=== PATIENT | female | born 2000 | race Caucasian/White ===

== ENCOUNTER 2024-12-24 08:29 | Day surgery (SDC) | payer OTHER, SELFPAY ==
[2024-12-24] VITALS (15 sets, daily range): BP systolic 83–122; BP diastolic 53–88; PULSE 69–115; RESP 16–18; TEMP 36.2–36.9; O2SAT 94–100; BMI 23.9
--- NOTE | 2024-12-24 09:02 | W.PM.OPSUD ---
Surgery/Procedure H&P Update DATE OF PROCEDURE: December 24, 2024 DATE H&P PERFORMED: 12/24/24 H&P UPDATE INFORMATION: I have reviewed H&P completed within last 30 days, I have examined patient prior to procedure and No changes to prior documentation PREOP DIAGNOSIS: Internal derangement left knee PLANNED PROCEDURE: Operation Date: 12/24/24 10:10 Proposed Procedures p Knee Arthroscopy w/ Microfracture of the patella(Left) - Ranjan Rowland MD s Removal of foreign body(Left) - Ranjan Rowland MD s Platelet-Rich Plasma Injection(Left) - Ranjan Rowland MD
--- NOTE | 2024-12-24 09:22 | ANES.PREANE2 ---
Pre-Anesthetic Assessment Height/Weight: Height 1.6 m Weight 61.235 kg Temp Pulse Resp BP Pulse Ox O2 Del Method 98.4 F 114 H 18 122/88 97 Room Air 12/24/24 08:58 12/24/24 08:58 12/24/24 08:58 12/24/24 08:58 12/24/24 08:58 12/24/24 08:58 Preop Diagnosis: Internal derangement left knee Operation Date: 12/24/24 10:10 Proposed Procedures p Knee Arthroscopy w/ Microfracture of the patella(Left) - Ranjan Rowland MD s Removal of foreign body(Left) - Ranjan Rowland MD s Platelet-Rich Plasma Injection(Left) - Ranjan Rowland MD Familial anesthetic complications: None Was Beta Fatuma taken within 24 hours: N/A Was Clonidine taken within 24 hours: N/A Last intake: Intake Last Liquid Date 12/23/24 Last Liquid Time 21:00 Last Solid Date 12/23/24 Last Solid Time 21:00 Social No alcohol and No tobacco Exam alert, oriented x 3, clear to auscultation bilaterally and regular rate & rhythm Airway Mallampati: Class I Dentition: full Anesthetic Plan ASA status: 1 Anesthesia: General Risk of > 500 ml blood loss (7ml/kg in children): No Medications/Allergies Home Medications ?Medication ?Instructions ?Recorded ?Confirmed ?Last Taken ?Type amitriptyline 10 mg tablet 10 mg PO DAILY 12/20/24 12/24/24 12/23/24 History citalopram 20 mg tablet 20 mg PO DAILY 12/20/24 12/24/24 12/23/24 History norgestimate 0.25 mg-ethinyl 1 tab PO QDAY 12/20/24 12/24/24 12/24/24 History estradiol 0.035 mg tablet (Bosque-Linyah) Allergies Allergy/AdvReac Type Severity Reaction Status Date / Time No Known Allergies Allergy Verified 12/24/24 08:57 [facility] Anesthesia Social History Smoking and tobacco/nicotine status: never used tobacco/nicotine
[2024-12-24] MEDS: sodium chloride 0.9% 1,000 ML 30 ML IV (09:23)
[2024-12-24 09:38] LABS: OR HCG Qualitative Urine Negative (Negative)
[2024-12-24] MEDS: ceFAZolin 2,000 mg SDV 2000 MG IVP (10:15)
[2024-12-24] MEDS: BUPivacaine 0.5% INJ 30 mL INJECTION (11:15)
[2024-12-24] MEDS: fentaNYL 50 mcg/mL INJ 2mL IVP ×2 (11:40→11:50)
[2024-12-24] MEDS: HYDROmorphone 1 mg/mL INJ 1ml 0.5 MG IVP ×2 (11:55→12:00)
--- NOTE | 2024-12-24 11:58 | P.OP_ITS ---
Operative Report Date of procedure: December 24, 2024 Surgeon: Ranjan Rowland MD Procedure: Preoperative diagnosis: Internal derangement of the left knee with loose bodies Postoperative diagnosis: Full-thickness cartilage loss distal portion of posterior patella, lateral femoral condyle Outer edge, hypertrophic synovium, loose body lateral gutter Procedure: Diagnostic left knee arthroscopy removal loose bodies, microfracture technique of posterior patella and lateral femoral condyle, partial synovectomy Surgeon: Ranjan Rowland MD Anesthesia: General EBL: 20 cc Indications: Cadence is a 24-year-old white female who had a knee injury within the last month causing her left knee to buckle and have a dislocation of her patella. She has a history of recurrent but locations of her left knee. After this injury however she is unable to bear weight unable to ambulate, and had significant swelling. She is originally seen by her primary care and then by an orthopedic surgeon in [place] who diagnosed her with a full-thickness cartilage loss to a portion of her posterior patella. Loose bodies of the cartilage wear within the knee. No other gross abnormalities were noted at that time. However, due to the length of time it would be to have surgery by this physician they sought a second opinion from my office. After evaluation and felt there was necessary for arthroscopic evaluation of the knee. Removal of loose bodies. Evaluation of the full-thickness cartilage loss with possible microfracture technique versus fibrin clot placement. All risks, benefits, and treatment alternatives were discussed with she and her family. They are agreeable to proceed with surgical intervention. Procedure: After obtaining written consent patient was taken to the operating room placed on the operative table in supine position general anesthetic was administered. Once anesthesia was achieved patient was left legs placed in a leg vigil and the bed was dropped. Right leg was padded appropriately. Left leg was prepped and draped usual fashion. After surgical timeout standard anterior medial and lateral portals were made within the knee and camera cannulas placed in the lateral portal. To her knee is undertaken at this point. Most notably there is hypertrophic synovium and bloody fluid within the knee. This is evacuated. Thermal probe and mechanical shaver used to do a partial synovectomy to be able to visualize the posterior patella IT groove and medial lateral gutters. Immediately noted of the posterior patella there is a central area measuring centimeter Hatzis 2 cm in diameter full-thickness cartilage loss down to bleeding bone. There is a partial fibrin clot already formed on this at this time. He grooved was found to be very shallow. No damage to the lateral condyle of the femur from previous dislocations. Medial gutter was explored with no findings there. Medial compartment demonstrated intact meniscus and articular cartilage. Intercondylar notch demonstrated intact anterior cruciate ligament with hypertrophic synovium. Lateral joint line revealed intact articular cartilage however there was an area of full-thickness cartilage loss along the outer edge of the main weightbearing surface of the lateral femoral condyle. This too also had a small fibrin clot already forming there. Meniscus was intact. Lateral gutter there is found to be 1 adhered piece of cartilage to the lateral femoral condyle and this was removed with a mechanical shaver and grasper. Further evaluation of the lateral gutter did not reveal any further cartilage fragments as previously seen on the MRI. Further evaluation the area just found hypertrophic tissue and more than likely cartilage was scarred in within the knee someplace. At this point all areas were debrided and using both K wires for drilling as well as the arthroscopic awl or fracture technique was undertaken on the posterior patella as well as the lateral femoral condyle. Good bleeding was obtained from both of these areas after microfracture technique. At this point 1 more toward the knee was done and still no free- floating fragments were identified. Camera cannulas removed. Wounds were closed with 3-0 Prolene horizontal mattress sutures. Wounds were injected with half percent Marcaine plain totaling 20 cc for postoperative pain management. Wounds are cleaned and dried dressed with Xeroform gauze sterile gauze dressing, ABDs, and. Patient is placed in [place] knee brace locked out to full extension at this time. Patient was then awakened transferred to the recovery room in stable condition
[2024-12-24] MEDS: acetaminophen 1,000 MG/100 ML PIGGYBACK 400 MG IV (12:05)
[2024-12-24] MEDS: ketorolac 30 mg/mL INJ (12:35)
[2024-12-24] MEDS: HYDROcodone-acetaminophen 5-325 mg Tablet 1 TAB PO (13:11)
--- NOTE | 2024-12-24 13:45 | ANE.PACU2 ---
Inpatient post-anesthesia follow up: Airway intact: Yes Vital signs: Temperature 97.7 F Pulse Rate 72 Respiratory Rate 17 Blood Pressure 118/68 Pulse Oximetry 94 Oxygen Delivery Me thod Room Air Oxygen Flow Rate Fraction of Inspir ed Oxygen Hydration adequate: Yes Nausea and vomiting: No Pain level: 5 Mental status: Baseline
== END 2024-12-24 13:48 | disposition home or self-care (01) ==
PROVIDERS: Anesthesiology; PCP Physician Assistant; Visit Provider Orthopaedic Surgery
PROC: (CPT 29870; principal; 2024-12-24 10:00)
DX: M23.92 Unspecified internal derangement of left knee (principal); M23.42 Loose body in knee, left knee; M67.262 Synovial hypertrophy, not elsewhere classified, left lower leg
CPT/HCPCS: 29879; 81025; C1713; J0131; J0690; J1100; J1171; J1885; J2250; J2405; J2704; J3010; J3490; J7030; J9999